=== PATIENT | female | born 1970 | race Caucasian/White ===

== ENCOUNTER → 2024-04-23 08:46 | Outpatient (BNVA) | payer OTHER, SELFPAY | PROVIDERS: Family Provider Family Medicine; Visit Provider Family Medicine | DX: E03.9 Hypothyroidism, unspecified (principal); Z00.00 Encounter for general adult medical examination without abnormal findings; C50.919 Malignant neoplasm of unspecified site of unspecified female breast; Z13.6 Encounter for screening for cardiovascular disorders | CPT/HCPCS: 80053; 80061; 83036; 84443; 85025 ==

== ENCOUNTER 2024-07-11 13:27 | Emergency (ER) | payer OTHER, SELFPAY ==
[2024-07-11 13:38] VITALS: BP 135/85; PULSE 91; RESP 16; TEMP 36.4; O2SAT 98; BMI 31.3
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
[2024-07-11 15:20] VITALS: BP 131/84; PULSE 82; RESP 16; O2SAT 98
== END 2024-07-11 15:18 | disposition home or self-care (01) ==
PROVIDERS: Emergency Provider Nurse Practitioner Family; Family Provider Family Medicine
DX: S20.211A Contusion of right front wall of thorax, initial encounter (principal); S39.012A Strain of muscle, fascia and tendon of lower back, initial encounter; V49.40XA Driver injured in collision with unspecified motor vehicles in traffic accident, initial encounter
CPT/HCPCS: 71101; 72100; 99284